=== PATIENT | male | born 1995 | race Caucasian/White ===

== ENCOUNTER 2018-04-21 13:18 | Emergency (ER) | payer BC | END 2018-04-21 15:38 | disposition home or self-care (01) | LOC: FTE 13:18 | DX: R22.0 Localized swelling, mass and lump, head (principal); Z21 Asymptomatic human immunodeficiency virus [HIV] infection status | CPT/HCPCS: 76536; 99284-25 ==

== ENCOUNTER 2018-12-22 14:58 | Emergency (ER) | payer BC | END 2018-12-22 15:50 | disposition home or self-care (01) | LOC: E/R 15:50 | DX: J45.21 Mild intermittent asthma with (acute) exacerbation (principal); Z21 Asymptomatic human immunodeficiency virus [HIV] infection status | CPT/HCPCS: 99283; Z7502 ==